=== PATIENT | female | born 1985 | race Caucasian/White ===

== ENCOUNTER 2018-06-14 11:25 | Emergency (ER) | payer OTHER ==
[~2018-06-14] VITALS: Ht 162.6 cm; Wt 61.7 kg
[~2018-06-14 11:25] MED LIST: HYDROXYZINE HCL25 M1 PO; NOHOMEMEDICATIONS; PRILOSEC 20 MG20 MG PO
[2018-06-14] MEDS ORDERED: HYDROXYZINE HCL25 M1 PO (11:36)
[2018-06-14 12:10] LABS: ABSOLUTE EOSINOPHILS 0.1 thou/uL (0.0-0.7); ABSOLUTE MONOCYTES 0.2 thou/uL (0.0-1.2); ABSOLUTE NEUTROPHILS 2.2 thou/uL (1.6-8.1); BASOPHILS 0.9 %; EOSINOPHILS 2.8 %; HEMATOCRIT 37.9 % (37.0-47.0); LYMPHOCYTES 28.3 %; MCH 30.9 pg (26.0-34.0); MCHC 34.4 g/dL (28.0-37.0); MCV 89.8 fL (80.0-100.0); MONOCYTES 6.1 %; NUCLEATED RBCS 0 /100WBC; PLATELET COUNT* 223 thou/uL (150-400); POLYS 61.9 %; RBC 4.22 mil/uL (4.20-5.00); RDW-CV 12.6 % (10.5-14.5); WBC 3.5 thou/uL (4.0-11.0)
[2018-06-14 12:19] LABS: ANION GAP 11 mmol/L (7-16); BUN 12 mg/dL (7-18); CALCIUM 9.2 mg/dL (8.5-10.1); CHLORIDE 103 mmol/L (98-107); CO2 25 mmol/L (21-32); CREATININE 0.9 mg/dL (0.6-1.3); GLUCOSE 105 mg/dL (70-99); POTASSIUM 3.5 mmol/L (3.5-5.1); SODIUM 139 mmol/L (136-145)
[2018-06-14 12:30] LABS: ALBUMIN 3.9 g/dL (3.4-5.0); ALKALINE PHOSPHATASE 52 U/L (46-116); LIPASE 257 U/L (73-393); NT-PRO BRAIN NAT PEPTIDE 35 pg/mL (<300); SGOT 14 U/L (15-37); SGPT 26 U/L (30-65); TOTAL BILIRUBIN 0.6 mg/dL (<0.1-1.0); TOTAL PROTEIN 7.4 g/dL (6.4-8.2); TROPONIN-I LEVEL <0.06 ng/mL (<0.06)
[2018-06-14] MEDS ORDERED: ATIVAN0.5 MG PO (14:00)
[2018-06-14 14:36] VITALS: BP 102/68
[2018-06-14 22:10] LABS: T3 UPTAKE 31 % (24-39)
--- NOTE | 2018-06-15 12:30 | EKG ---
[place] [address] ELECTROCARDIOGRAM REPORT Name: VIOLETANATALIA Tristan Room: [facility]#: [id number] Admission: 06/14/18 Attend Phys: Discharge: 06/14/18 Date of : 85 Report #: [id number] THIS REPORT FOR: //name// [facility] Test Date: 2018-06-14 Test Time: 11:31:28 Pat Name: NATALIA MCDANIEL Department: Room: Gender: F Test Facility Engineer: KILEY : 1985 Requested By: Bashir Lamar Order Number: [id number] MD: Rudi Blackmon Measurements Intervals Gary Rate: 91 P: -18 [place]: 115 QRS: 99 QRSD: 120 T: 76 QT: 383 QTc: 472 Interpretive Statements Sinus rhythm Borderline short [place] interval Compared to ECG 06/10/2012 12:12:49 Right-axis deviation no longer present Incomplete right bundle-branch block no longer present Electronically Signed On 06-15-2018 12:29:54 MANAGER ENGLISH by Rudi Blackmon [email or web address] <ELECTRONICALLY SIGNED> By: Rudi Blackmon MD, [facility] 06/15/18 1229 1131 113 Rudi Blackmon MD, FACC /EPI
== END 2018-06-14 14:36 | disposition home or self-care (01) ==
LOC: M.ERS 11:25
PROVIDERS: Emergency Medicine
DX: R00.2 Palpitations (principal); F41.9 Anxiety disorder, unspecified; Z88.0 Allergy status to penicillin